=== PATIENT | male | born 1980 | race Caucasian/White ===

== ENCOUNTER 2023-09-14 08:02 | Emergency (ER) | payer BC, SELFPAY ==
--- NOTE | 2023-09-14 08:00 | DI.RAD_ITS ---
Exam(s) XR ANKLE RT COMPLETE EXAM: XR ANKLE RT COMPLETE CLINICAL HISTORY: lateral ankle pain. TECHNIQUE: 2D digital imaging was performed. COMPARISON: No exams were available for comparison FINDINGS: 3 views There is a mildly displaced fracture none of the lateral malleolus. There is overlying soft tissue s welling. No widening of the ankle mortise. Talar dome appears unremarkable. No other fractures magdiel dent. Bone density normal. No osseous lesions. No tarsal coalition. IMPRESSION: Mildly displaced fracture of the lateral malleolus. DATA REPOSITORY: RADIATION DOSE DELIVERED:
[2023-09-14 08:06] VITALS: BP 155/99; PULSE 83; RESP 18; TEMP 36.9; O2SAT 98
--- NOTE | 2023-09-14 08:44 | DI.VRAD_ITS ---
PROCEDURE INFORMATION: Exam: XR Right Ankle Exam date and time: 09/14/2023 8:31 AM Age: 43 years old Clinical indication: Injury or trauma; Fall; Fracture, traumatic; Closed fracture; Ankle; Right; Malleolus, lateral TECHNIQUE: Imaging protocol: Radiologic exam of the right ankle. Views: 3 or more views. COMPARISON: No relevant prior studies available. FINDINGS: Bones/joints: Minimally displaced fracture of the lateral malleolus. No additional fractures are seen. The ankle mortise is congruent. Soft tissues: Normal. IMPRESSION: Minimally displaced fracture of the lateral malleolus. Dictated and Authenticated by: Bharti Almaraz MD. Ordering:ELYSE George MD
--- NOTE | 2023-09-14 09:47 | ED.GENADUL_ITS ---
Discharge Plan Disposition Patient Disposition: Home Condition: Stable Discharge Details Clinical Impression: Bimalleolar ankle fracture Primary Care Provider: Unknown,Unknown ED Provider: Doris Munguia Home Meds and New Rx's Prescriptions: Continued fexofenadine [Roxanne Allergy] 180 mg tablet 180 mg PO DAILY Discharge Instructions Instructions: Ankle Fracture ED, How to care for your cast Additional Instructions: Elevate, ice Take ibuprofen 600 mg every 8 hours with food You may take Tylenol for breakthrough pain, 650 every 6 hours Use the oxycodone sparingly only for pain uncontrolled with ibuprofen and Tylenol, these medications can be addictive Do not operate your vehicle for 8 hours after taking this medication Please follow-up with orthopedics on Friday Keep splint dry Referrals: Yves Izquierdo MD [ [facility] STAFF PHYSICIAN] - 1 day HPI General Date/Time Provider Initiated Documentation: 09/14/23 08:08 . HPI Narrative: This 43 yo male presents with report of twisting his ankle running away from a bear. Denies any additional injuries. Unable to bear weight on the affected ankle per patient. Denies strength or sensation change. Related Data Home Medications Medication Instructions Recorded Confirmed fexofenadine 180 mg tablet 180 mg PO DAILY 09/14/23 09/14/23 (Roxanne Allergy) Allergies Allergy/AdvReac Type Severity Reaction Status Date / Time azithromycin Allergy Hives Verified 09/14/23 08:08 General Stated Complaint: Orthopedic EVELIN: 4 Exam Narrative Exam Narrative: Alert and oriented, significant swelling over lateral malleolus and ankle. Neurovascularly intact and no tenderness to proximal knee or tib-fib tenderness over shaft Course Vital Signs Vital signs: Vital Signs Temperature 36.9 C 09/14/23 08:06 Pulse 83 09/14/23 08:06 Respiratory Rate 18 09/14/23 08:06 Blood Pressure 155/99 H 09/14/23 08:06 Pulse Oximetry 98 09/14/23 08:06 Temperature 36.9 C 09/14/23 08:06 Temperature Source Skin 09/14/23 08:06 Pulse 83 09/14/23 08:06 Respiratory Rate 18 09/14/23 08:06 Blood Pressure 155/99 H 09/14/23 08:06 Blood Pressure Position Sitting 09/14/23 08:06 Pulse Oximetry 98 09/14/23 08:06 Oxygen Delivery Method Room Air 09/14/23 08:06 Oxygen Flow Rate 0 09/14/23 08:06 Pain Level 5 09/14/23 08:06 Procedures Orthopedic Splinting/Casting Injury #1: Side: right Lower Extremity Injury Location: ankle Lower Extremity Immobilizer: posterior splint and stirrup splint Additional Comments: Neurovascularly intact pre and postprocedure Medical Decision Making 40-year-old male presenting with injury to right ankle. X-ray was ordered which shows definite fibula fracture, however patient has an area of suspected avulsion to the posterior distal tibia concerning for possible bimalleolar fracture, I will place patient in a posterior and stirrup until he sees orthopedics, he is placed on referral list. He is neurovascularly intact pre and post splinting procedure. 4 tablets of oxycodone with risk of addiction reviewed. Return precautions reviewed and patient expressed understanding Quality:SDOH Health Related Social Needs: No Data to Display PFSH All Active Problems (Updated 09/14/23 @ 09:30 by SHELLY Mccord) Bimalleolar ankle fracture (Acute) Social History Smoking risk assessment performed?: No Housing: house
== END 2023-09-14 09:51 | disposition home or self-care (01) ==
PROVIDERS: Emergency Provider Physician Assistant
DX: S82.851A Displaced trimalleolar fracture of right lower leg, initial encounter for closed fracture (principal); W18.49XA Other slipping, tripping and stumbling without falling, initial encounter
CPT/HCPCS: 27786; 99283; 73610

== ENCOUNTER 2023-09-22 12:35 | Outpatient (CLI) | payer BC, SELFPAY ==
--- NOTE | 2023-09-22 11:45 | DI.RAD_ITS ---
Exam(s) XR ANKLE RT COMPLETE EXAM: XR ANKLE RT COMPLETE CLINICAL HISTORY: R ANKLE FX. TECHNIQUE: 2D digital imaging was performed. Four views, including additional stress view. COMPARISON: CR,XR XR ANKLE RT COMPLETE from 09/14/2023 FINDINGS: BONES: Stable alignment lateral malleolar fracture. No bony destructive lesion is seen. JOINTS: Slight widening of the medial ankle mortise on stress view. SOFT TISSUE: Swelling. IMPRESSION: Lateral malleolar fracture extends to the level of the ankle mortise. Mild ankle mortise widening on stress view. DATA REPOSITORY: RADIATION DOSE DELIVERED:
== END 2023-09-22 12:36 | disposition home or self-care (01) ==
LOC: DIORS 12:35
PROVIDERS: Visit Provider Student in an Organized Health Care Education/Training Program
DX: S82.841A Displaced bimalleolar fracture of right lower leg, initial encounter for closed fracture (principal)
CPT/HCPCS: 73610

== ENCOUNTER 2023-09-29 15:30 | Outpatient (CLI) | payer BC, SELFPAY ==
--- NOTE | 2023-09-29 08:45 | DI.RAD_ITS ---
Exam(s) XR ANKLE RT COMPLETE EXAM: XR ANKLE RT COMPLETE CLINICAL HISTORY: F/U R ANKLE FX. TECHNIQUE: 2D digital imaging was performed of the right ankle. Four images were obtained. AP, lat eral and oblique views were obtained. COMPARISON: CR XR ANKLE RT COMPLETE from 09/22/2023 FINDINGS: BONES: There is again seen a mildly displaced distal right fibular fracture. The fracture occurs at the level of the ankle joint. There is 2 mm lateral displacement of the distal fracture. There is 3 mm posterior displacement of the distal fracture. No bony destructive lesion is seen. There is a ti ny enthesophyte at the posterior calcaneus. JOINTS: The ankle mortise appears stable. SOFT TISSUE: There is soft tissue swelling around the ankle. IMPRESSION: Mildly displaced distal right fibular fracture is again seen. DATA REPOSITORY: RADIATION DOSE DELIVERED:
== END 2023-09-29 15:31 | disposition home or self-care (01) ==
LOC: DIORS 15:30
PROVIDERS: Visit Provider Student in an Organized Health Care Education/Training Program
DX: S82.841A Displaced bimalleolar fracture of right lower leg, initial encounter for closed fracture (principal)
CPT/HCPCS: 73610

== ENCOUNTER 2023-10-27 15:52 | Outpatient (CLI) | payer BC, SELFPAY ==
--- NOTE | 2023-10-27 15:30 | DI.RAD_ITS ---
Exam(s) XR ANKLE RT COMPLETE EXAM: XR ANKLE RT COMPLETE CLINICAL HISTORY: F/U BRENDAN ANKLE FX. TECHNIQUE: 2D digital imaging was performed of the right ankle. Four images were obtained. AP, lat eral and oblique views were obtained. COMPARISON: CR XR ANKLE RT COMPLETE from 09/29/2023 FINDINGS: BONES: There has been no significant change in alignment of the mildly displaced distal right fibular fracture. No bony destructive lesion is seen. JOINTS: The ankle mortise is normally aligned. SOFT TISSUE: Normal. IMPRESSION: Stable distal right fibular fracture. DATA REPOSITORY: RADIATION DOSE DELIVERED:
== END 2023-10-27 15:53 | disposition home or self-care (01) ==
LOC: DIORS 15:52
PROVIDERS: Visit Provider Student in an Organized Health Care Education/Training Program
DX: S82.841D Displaced bimalleolar fracture of right lower leg, subsequent encounter for closed fracture with routine healing (principal); X58.XXXD Exposure to other specified factors, subsequent encounter
CPT/HCPCS: 73610

== ENCOUNTER 2023-11-24 15:42 | Outpatient (CLI) | payer BC, SELFPAY ==
--- NOTE | 2023-11-24 14:48 | DI.RAD_ITS ---
Exam(s) XR ANKLE RT COMPLETE EXAM: XR ANKLE RT COMPLETE CLINICAL HISTORY: S/P ORIF R ANKLE FX. TECHNIQUE: 2D digital imaging was performed. Three views. COMPARISON: CR XR ANKLE RT COMPLETE from 10/27/2023 FINDINGS: BONES: Change in alignment of lateral malleolar fracture. No new abnormalities. No bony destructive lesion is seen. JOINTS: The ankle mortise is normally aligned. SOFT TISSUE: Normal. IMPRESSION: Stable alignment of lateral malleolar fracture. DATA REPOSITORY: RADIATION DOSE DELIVERED:
== END 2023-11-24 15:43 | disposition home or self-care (01) ==
LOC: DIORS 15:42
PROVIDERS: Visit Provider Student in an Organized Health Care Education/Training Program
DX: S82.841A Displaced bimalleolar fracture of right lower leg, initial encounter for closed fracture (principal); X58.XXXA Exposure to other specified factors, initial encounter
CPT/HCPCS: 73610

== ENCOUNTER 2023-12-22 15:40 | Outpatient (CLI) | payer BC, SELFPAY ==
--- NOTE | 2023-12-22 15:15 | DI.RAD_ITS ---
Exam(s) XR ANKLE RT COMPLETE EXAM: XR ANKLE RT COMPLETE CLINICAL HISTORY: evaluate for fracture. TECHNIQUE: 2D digital imaging was performed of the right ankle. Three images were obtained. AP, la teral and oblique views were obtained. COMPARISON: CR XR ANKLE RT COMPLETE from 10/27/2023 CR XR ANKLE RT COMPLETE from 11/24/2023 FINDINGS: BONES: There has been no significant change in alignment of the distal fibular fracture. The fractur e line is still visualized. No new fracture is identified. No bony destructive lesion is seen. JOINTS: The ankle mortise is normally aligned. SOFT TISSUE: Normal. IMPRESSION: Stable distal right fibular fracture. DATA REPOSITORY: RADIATION DOSE DELIVERED:
== END 2023-12-22 15:41 | disposition home or self-care (01) ==
LOC: DIORS 15:40
PROVIDERS: Visit Provider Student in an Organized Health Care Education/Training Program
DX: S82.841D Displaced bimalleolar fracture of right lower leg, subsequent encounter for closed fracture with routine healing; X58.XXXD Exposure to other specified factors, subsequent encounter
CPT/HCPCS: 73610